=== PATIENT | male | born 1940 | race Caucasian/White ===

== ENCOUNTER → 2016-08-02 | Outpatient (CLI) | payer MEDICARE | LOC: MW.CHFP 08:00 | DX: L82.1 Other seborrheic keratosis (principal) | CPT/HCPCS: G0463 ==

== ENCOUNTER 2017-04-23 07:47 | Day surgery (SDC) | payer MEDICARE ==
[~2017-04-23 07:47] MED LIST: Bupivacaine 25%/EPINEPHrine/PF 30 ML ONE; Lactated Ringers 1,000 ML IV SCH; Lidocaine 2% 5 ML SDV ONE; Midazolam 1 MG/ML 2 ML SDV ONE; Ondansetron 4 MG/2 ML SDV ONE; Propofol 200 MG/20 ML SDV ONE; Sodium Chloride 0.9% 10 ML Syringe FLUSH PRN; Sodium Chloride 0.9% 2.5 ML Syringe FLUSH PRN; ceFAZolin 2 GM in Premix Bag 1 BAG IV ONE; fentaNYL 100 MCG/2 ML SDV ONE
[2017-04-23] MEDS ORDERED: Phenylephrine/Normal Saline 100 MCG/ML 10 ML Syringe ONE (08:03)
[2017-04-23] MEDS ORDERED: Sodium Chloride 0.9% 0 ML ONE (08:03)
[2017-04-23] MEDS ORDERED: ceFAZolin 1 GM Vial ONE ×2 (08:03→09:37)
[2017-04-23] MEDS ORDERED: ePHEDrine 50 MG/ML SDV ONE ×2 (08:05→09:43)
--- NOTE | 2017-04-23 08:45 | PCM.PREANE ---
Preanesthetic Assessment - Anesthesia/Transfusion/Family Hx Anesthesia History: Prior Anesthesia Without Reaction Family History of Anesthesia Reaction: No Transfusion History: No Prior Transfusion(s) - Review of Systems General: No Symptoms Pulmonary: No Symptoms Cardiovascular: No Symptoms Gastrointestinal: No Symptoms Neurological: No Symptoms Other: Reports: None - Physical Assessment NPO Status Date: 04/22/17 Height: 1.78 m Weight: 69.853 kg ASA Class: 1 Mental Status: Alert & Oriented x3 Airway Class: Mallampati = 1 Dentition: Reports: Partial ROM/Head Extension: Full Lungs: Clear to Auscultation, Normal Respiratory Effort Cardiovascular: Regular Rate, Regular Rhythm - Allergies Allergies/Adverse Reactions: Allergies Allergy/AdvReac Type Severity Reaction Status Date / Time bacitracin zinc Allergy Blisters Verified 12/02/14 17:46 [From Neosporin + Pain Relief] lactose Allergy Abdominal Verified 12/02/14 17:46 Cramps latex Allergy Rash Verified 12/02/14 17:46 neomycin sulfate Allergy Blisters Verified 12/02/14 17:46 [From Neosporin + Pain Relief] polymyxin B sulfate Allergy Blisters Verified 12/02/14 17:46 [From Neosporin + Pain Relief] pramoxine Allergy Blisters Verified 12/02/14 17:46 [From Neosporin + Pain Relief] pramoxine HCl Allergy Blisters Verified 12/02/14 17:46 [From Neosporin + Pain Relief] - Acknowledgements Anesthesia Type Planned: General Anesthesia Pt an Appropriate Candidate for the Planned Anesthesia: Yes Alternatives and Risks of Anesthesia Discussed w Pt/Guardian: Yes Pt/Guardian Understands and Agrees with Anesthesia Plan: Yes PreAnesthesia Questionnaire HEENT History: Reports: Other (See Below) Other HEENT History: wears glasses, top and bottom partial Respiratory History: Reports: Asthma Other Respiratory History: asthma as a child Gastrointestinal History: Reports: Other (See Below) Other Gastrointestinal History: Colon Cancer, diagnosed 10/14/14 Genitourinary History: Reports: None Oncologic (Cancer) History: Reports: Colon - Past Surgical History Head Surgeries/Procedures: Reports: None HEENT Surgical History: Reports: Tonsillectomy GI Surgical History: Reports: Colon, Colonoscopy, Hernia, Abdominal Other GI Surgeries/Procedures: hx partial colectomy with colostomy for colon cancer, reversal of colostomy, hx of left inguinal hernia repair, abd hernia repair - SUBSTANCE USE Smoking Status *Q: Former Smoker Days Per Week of Alcohol Use: 0 Recreational Drug Use History: No - HOME MEDS Home Medications: Home Meds . [No Known Home Meds] 04/17/17 [History] - CURRENT (IN HOUSE) MEDS Current Meds: Current Medications Lactated Ringer's (Ringers, Lactated) 1,000 mls @ 125 mls/hr IV ASDIRECTED [facility] Last Admin: 04/23/17 08:27 Dose: 125 mls/hr Sodium Chloride (Saline Flush) 10 ml FLUSH ASDIRECTED PRN PRN Reason: Keep Vein Open Sodium Chloride (Saline Flush) 2.5 ml FLUSH ASDIRECTED PRN PRN Reason: Keep Vein Open Discontinued Medications Cefazolin Sodium (Ancef) Confirm Administered Dose 1 gm .ROUTE .STK-MED ONE Stop: 04/23/17 08:04 Ephedrine Sulfate (Ephedrine Sulfate) Confirm Administered Dose 50 mg .ROUTE .STK-MED ONE Stop: 04/23/17 08:06 Fentanyl (Sublimaze) Confirm Administered Dose 200 mcg .ROUTE .STK-MED ONE Stop: 04/23/17 07:29 Cefazolin Sodium/Dextrose 2 gm (/ Premix) 50 mls @ 100 mls/hr IV ONETIME ONE Stop: 04/22/17 17:03 Bupivacaine HCl/Epinephrine Bitart (Sensorc Mpf 0.25%-Epi [id number]) Confirm Administered Dose 30 mls @ as directed .ROUTE .STK-MED ONE Stop: 04/23/17 07:36 Sodium Chloride (Normal Saline) Confirm Administered Dose 20 mls @ as directed .ROUTE .STK-MED ONE Stop: 04/23/17 08:04 Lidocaine (Xylocaine-Mpf 2%) Confirm Administered Dose 5 ml .ROUTE .STK-MED ONE Stop: 04/23/17 07:29 Midazolam HCl (Versed 1 Mg/Ml) Confirm Administered Dose 2 mg .ROUTE .STK-MED ONE Stop: 04/23/17 07:29 Ondansetron HCl (Zofran) Confirm Administered Dose 4 mg .ROUTE .STK-MED ONE Stop: 04/23/17 07:29 Phenylephrine HCl (Phenylephrine In Ns 100 Mcg/Ml) Confirm Administered Dose 1 mg .ROUTE .STK-MED ONE Stop: 04/23/17 08:04 Propofol (Diprivan 20 Ml) Confirm Administered Dose 200 mg .ROUTE .STK-MED ONE Stop: 04/23/17 07:29
[2017-04-23] MEDS ORDERED: Bupivacaine 25%/EPINEPHrine/PF 30 ML ONE (09:10)
[2017-04-23] MEDS ORDERED: Sodium Chloride 0.9% 20 ML ONE (09:37)
--- NOTE | 2017-04-23 11:23 | PCM.OPNOTE ---
- General Post-Op/Procedure Note Date of Surgery/Procedure: 04/23/17 Operative Procedure(s): Right indirect inguinal hernia repair Findings: Right direct inguinal hernia Pre Op Diagnosis: inguinal hernia Post-Op Diagnosis: Right indirect inguinal hernia Anesthesia Technique: General LMA EBL in mLs: 5 Condition: Good
[2017-04-23] MEDS ORDERED: Acetaminophen 1,000 MG in Premix Bag 1 BAG IV ONE (11:39)
--- NOTE | 2017-04-23 11:52 | PCM.POSTAN ---
POST ANESTHESIA ASSESSMENT - MENTAL STATUS Mental Status: Alert, Oriented - RESPIRATORY Respiratory Status: Respiratory Rate WNL, Airway Patent, O2 Saturation Stable - CARDIOVASCULAR CV Status: Pulse Rate WNL, Blood Pressure Stable - GASTROINTESTINAL GI Status: No Symptoms - POST OP HYDRATION Hydration Status: Adequate & Stable
--- NOTE | 2017-04-23 13:21 | PCM48HPAN ---
Post Anesthesia Note - EVALUATION WITHIN 48HRS OF ANESTHETIC Vital Signs in Normal Range: Yes Patient Participated in Evaluation: Yes Respiratory Function Stable: Yes Airway Patent: Yes Cardiovascular Function Stable: Yes Hydration Status Stable: Yes Pain Control Satisfactory: Yes Nausea and Vomiting Control Satisfactory: Yes Mental Status Recovered: Yes
[2017-04-23] MEDS ORDERED: Acetaminophen/oxyCODONE 325-5 MG Tab PO PRN (13:35)
[2017-04-23 15:27] VITALS: BP 146/80
--- NOTE | 2017-04-23 17:34 | OR ---
SURGEON: KRISTIE HARMAN MD DATE OF PROCEDURE: 04/23/2017 PREOPERATIVE DIAGNOSIS: Right inguinal hernia. POSTOPERATIVE DIAGNOSIS: Right direct inguinal hernia. PROCEDURE PERFORMED: Right inguinal hernia repair with mesh. ANESTHESIA: General LMA. FLUIDS: See Anesthesia record. ESTIMATED BLOOD LOSS: 5 mL. FINDINGS: Large indirect inguinal hernia sac on the right side. No evidence of a direct inguinal hernia. COMPLICATIONS: None. INDICATIONS: The patient is a 76-year-old male, who presents with an enlarging right inguinal hernia. This has been present for the last several months and is getting larger in size. It has recently started to become painful and more difficult to reduce. Decision was made to perform a repair of this hernia. The patient and I discussed the procedure as well as expected perioperative course. We discussed the risks including bleeding, infection, and damage to surrounding structures. The patient verbalized understanding and wishes to proceed. PROCEDURE IN DETAIL: The patient was brought into the OR and placed on the OR table in a supine position. A time-out was completed verifying the patient's name, age, date of , allergies, and procedure to be performed. General LMA anesthesia was induced. The abdomen and groin were prepped and draped in the usual standard fashion. I anesthetized the area of the right inguinal ligament with 0.5% Marcaine plain. An incision was made about 2 fingerbreadths above the inguinal ligament in an oblique fashion. Cautery was used to dissect down to the level of the external oblique fascia. The external oblique fascia was opened with a #15 blade along its fibers. Metzenbaum scissors were used to open up the fibers up to the external ring. Flaps were created superiorly and inferiorly underneath the external oblique fascia. The cord was then dissected free from the floor of the inguinal canal around the pubic tubercle and encircled with umbilical tape. The patient had an indirect inguinal hernia sac on the anteromedial portion of the cord structures. This was dissected free while protecting the cord structures below. It was dissected up to the level of the internal ring. At the level of the internal ring, a cord lipoma was noted. This was dissected free off the hernia sac and ligated. The base of the inguinal hernia sac and cord lipoma were both tied with 3-0 Vicryl to ensure good hemostasis. The indirect hernia sac was transected above the suture and hemostasis ensured. The cord lipoma and inguinal hernia sac were sent to Pathology. A large patch was then brought into the field and sutured medially to the pubic tubercle with 0 Ethibond suture. The mesh was secured inferiorly to the inguinal shelf with interrupted 0 Ethibond sutures. It was secured superiorly to the transversalis fascia with interrupted 0 Ethibond sutures. The tails were then brought together to recreate the internal ring and sutured together. The defect in the mesh was wide enough to allow passage of just the tip of my finger. This was enough room so that the cord structures did not appear strangulated. Once the mesh was secured in place, the wound was irrigated with normal saline. 3-0 Vicryl was then used to close the external oblique down to the level of the external ring. The skin was then closed with a running 3-0 Vicryl suture in the subcutaneous fat and a running 4-0 Monocryl suture to close the skin. Steri- Strips and sterile dressings were applied. The patient tolerated procedure well and was taken to the PACU in stable condition. LÓPEZ MORTON /[id number]
== END 2017-04-23 14:55 | disposition home or self-care (01) ==
LOC: MW.SDS 07:47
PROVIDERS: ATTEND Surgery
DX: K40.90 Unilateral inguinal hernia, without obstruction or gangrene, not specified as recurrent (principal); J45.909 Unspecified asthma, uncomplicated; Z88.6 Allergy status to analgesic agent; Z88.1 Allergy status to other antibiotic agents; Z91.040 Latex allergy status; Z91.011 Allergy to milk products; Z85.038 Personal history of other malignant neoplasm of large intestine; Z87.891 Personal history of nicotine dependence; Z80.42 Family history of malignant neoplasm of prostate; Z90.49 Acquired absence of other specified parts of digestive tract; Z98.890 Other specified postprocedural states
CPT/HCPCS: 49505; A9270; J0690; J2250; J2405; J3010; J7120; 00830; 88302; C1781; J2704

== ENCOUNTER 2018-12-17 06:52 | Day surgery (SDC) | payer OTHER, MEDICARE ==
[~2018-12-17 06:52] MED LIST changes: -Bupivacaine 25%/EPINEPHrine/PF 30 ML ONE; -Lidocaine 2% 5 ML SDV ONE; -Midazolam 1 MG/ML 2 ML SDV ONE; -Ondansetron 4 MG/2 ML SDV ONE; -Propofol 200 MG/20 ML SDV ONE; +Sodium Chloride 0.9% 10 ML SDV IV PRN; -ceFAZolin 2 GM in Premix Bag 1 BAG IV ONE; -fentaNYL 100 MCG/2 ML SDV ONE
[2018-12-17] MEDS ORDERED: Propofol 200 MG/20 ML SDV ONE (07:13)
[2018-12-17] MEDS ORDERED: fentaNYL 100 MCG/2 ML SDV ONE (07:13)
[2018-12-17] MEDS ORDERED: Midazolam 1 MG/ML 2 ML SDV ONE (07:14)
--- NOTE | 2018-12-17 08:41 | PCM.PREANE ---
Preanesthetic Assessment - Anesthesia/Transfusion/Family Hx Anesthesia History: Prior Anesthesia Without Reaction Family History of Anesthesia Reaction: No Transfusion History: No Prior Transfusion(s) Intubation History: Unknown - Review of Systems General: No Symptoms Pulmonary: No Symptoms Cardiovascular: No Symptoms Gastrointestinal: Hematochezia, Other (h/o colon cancer 4 years ago) Neurological: No Symptoms Other: Reports: None - Physical Assessment O2 Sat by Pulse Oximetry: 97 Respiratory Rate: 14 Vital Signs: Last Vital Signs Temp 36.6 C 12/17/18 07:29 Pulse 72 12/17/18 07:29 Resp 14 12/17/18 07:29 BP 123/62 12/17/18 07:29 Pulse Ox 97 12/17/18 07:29 Height: 5 ft 10 in Weight: 67.585 kg ASA Class: 2 Mental Status: Alert & Oriented x3 Airway Class: Mallampati = 2 Dentition: Reports: Normal Dentition, Partial (upper and lower) Thyro-Mental Finger Breadths: 3 Mouth Opening Finger Breadths: 3 ROM/Head Extension: Full Lungs: Clear to Auscultation, Normal Respiratory Effort Cardiovascular: Regular Rate, Regular Rhythm - Allergies Allergies/Adverse Reactions: Allergies Allergy/AdvReac Type Severity Reaction Status Date / Time bacitracin zinc Allergy Blisters Verified 12/14/18 08:00 [From Neosporin + Pain Relief] lactose Allergy Abdominal Verified 12/14/18 08:00 Cramps latex Allergy Rash Verified 12/14/18 08:00 neomycin sulfate Allergy Blisters Verified 12/14/18 08:00 [From Neosporin + Pain Relief] polymyxin B sulfate Allergy Blisters Verified 12/14/18 08:00 [From Neosporin + Pain Relief] pramoxine Allergy Blisters Verified 12/14/18 08:00 [From Neosporin + Pain Relief] pramoxine HCl Allergy Blisters Verified 12/14/18 08:00 [From Neosporin + Pain Relief] - Blood Blood Available: No - Anesthesia Plan Pre-Op Medication Ordered: None - Acknowledgements Anesthesia Type Planned: MAC Pt an Appropriate Candidate for the Planned Anesthesia: Yes Alternatives and Risks of Anesthesia Discussed w Pt/Guardian: Yes Pt/Guardian Understands and Agrees with Anesthesia Plan: Yes PreAnesthesia Questionnaire HEENT History: Reports: Other (See Below) Other HEENT History: wears glasses, top and bottom partial Cardiovascular History: Reports: None Respiratory History: Reports: None Gastrointestinal History: Reports: Other (See Below) Other Gastrointestinal History: Colon Cancer, diagnosed 10/14/14 Genitourinary History: Reports: None Musculoskeletal History: Reports: None Neurological History: Reports: None Psychiatric History: Reports: None Endocrine/Metabolic History: Reports: None Hematologic History: Reports: None Immunologic History: Reports: None Oncologic (Cancer) History: Reports: Colon Dermatologic History: Reports: None - Past Surgical History Head Surgeries/Procedures: Reports: None HEENT Surgical History: Reports: Tonsillectomy Cardiovascular Surgical History: Reports: None Respiratory Surgical History: Reports: None GI Surgical History: Reports: Appendectomy, Colon (laparoscopic partial colectomy with loop ileostomy and later ileostomy take down), Colonoscopy (x2), Hernia, Inguinal Other GI Surgeries/Procedures: hx partial colectomy with colostomy for colon cancer, reversal of colostomy, hx of left & rt inguinal hernia repair, Male Surgical History: Reports: None Endocrine Surgical History: Reports: None Neurological Surgical History: Reports: None Musculoskeletal Surgical History: Reports: None Oncologic Surgical History: Reports: None Dermatological Surgical History: Reports: None - SUBSTANCE USE Smoking Status *Q: Former Smoker Tobacco Use Within Last Twelve Months: No Recreational Drug Use History: No - HOME MEDS Home Medications: Home Meds . [No Known Home Meds] 04/17/17 [History] - CURRENT (IN HOUSE) MEDS Current Meds: Current Medications Lactated Ringer's (Ringers, Lactated) 1,000 mls @ 125 mls/hr IV ASDIRECTED [facility] Last Admin: 12/17/18 07:57 Dose: 125 mls/hr Sodium Chloride (Saline Flush) 10 ml FLUSH ASDIRECTED PRN PRN Reason: Keep Vein Open Sodium Chloride (Saline Flush) 2.5 ml FLUSH ASDIRECTED PRN PRN Reason: Keep Vein Open Sodium Chloride (Saline Flush) 10 ml FLUSH ASDIRECTED PRN PRN Reason: Keep Vein Open Sodium Chloride (Saline Flush) 2.5 ml FLUSH ASDIRECTED PRN PRN Reason: Keep Vein Open Sodium Chloride (Normal Saline) 10 ml IV ASDIRECTED PRN PRN Reason: IV Use Discontinued Medications Fentanyl (Sublimaze) Confirm Administered Dose 100 mcg .ROUTE .K-MED ONE Stop: 12/17/18 07:14 Midazolam HCl (Versed 1 Mg/Ml) Confirm Administered Dose 2 mg .ROUTE .STK-MED ONE Stop: 12/17/18 07:15 Propofol (Diprivan 20 Ml) Confirm Administered Dose 200 mg .ROUTE .STK-MED ONE Stop: 12/17/18 07:14
--- NOTE | 2018-12-17 09:56 | PCM.OPNOTE ---
- General Post-Op/Procedure Note Date of Surgery/Procedure: 12/17/18 Operative Procedure(s): Diagnostic colonoscopy Findings: 2 sigmoid colon polyps @ 20 cm, Grade 2 hemorrhoids, diverticulosis Pre Op Diagnosis: History of rectal cancer, BRBPR Post-Op Diagnosis: Sigmoid colon polyps x 2, diverticulosis, grade 2 hemorrhoids Anesthesia Technique: MAC Primary Surgeon: Julia Gottlieb Fluid Replacement, Intraop: 800 Condition: Good
--- NOTE | 2018-12-17 10:32 | PCM.POSTAN ---
POST ANESTHESIA ASSESSMENT - MENTAL STATUS Mental Status: Alert, Oriented - RESPIRATORY Respiratory Status: Respiratory Rate WNL, Airway Patent - CARDIOVASCULAR CV Status: Pulse Rate WNL, Blood Pressure Stable - GASTROINTESTINAL GI Status: No Symptoms - PAIN Pain Score: 0 - POST OP HYDRATION Hydration Status: Adequate & Stable - OBSERVATIONS Free Text/Narrative:: no anesthesia problems
[2018-12-17 10:38] VITALS: BP 141/65
--- NOTE | 2018-12-17 13:32 | OR ---
SURGEON: JULIA GOTTLIEB MD DATE OF PROCEDURE: 12/17/2018 PREOPERATIVE DIAGNOSES: History of rectal cancer, change in bowel habits. POSTOPERATIVE DIAGNOSES: 1. Diverticulosis. 2. Grade 2 hemorrhoids. 3. Sigmoid colon polyps x2. PROCEDURE PERFORMED: Diagnostic colonoscopy with biopsy. PRIMARY SURGEON: Julia Gottlieb MD. ANESTHESIA: MAC. INSTRUMENT USED: Olympus colonoscope. EXTENT OF EXAM: To the cecum. PREPARATION: Good. LIMITATIONS: None. INDICATIONS FOR EXAMINATION: The patient is a 78-year-old male with a history of rectal cancer. He has undergone colon resection and ostomy takedown. He has recently had a change in his bowel habits with some bright red bleeding per rectum. The decision was made to proceed with a diagnostic colonoscopy. I explained the procedure, expected perioperative course, and risks including bleeding, infection, or damage to surrounding structures. The patient verbalized understanding and wishes to proceed. PROCEDURE IN DETAIL: The patient was brought into the endoscopy suite and placed in the left lateral decubitus position. A time-out was completed verifying the patient's name, age, date of , allergies, and procedure to be performed. Monitored anesthesia care was induced and continuous oxygen was provided via nasal cannula throughout the procedure. After adequate sedation was achieved, a digital rectal exam was performed. This showed grade 2 hemorrhoids. A well-lubricated colonoscope was inserted in the rectum and advanced under direct visualization to the level of the cecum. The cecum was identified by both visual and anatomic landmarks. A photograph was taken of the cecal cap. However, I was unable to retroflex the scope within the cecum due to looping of the scope more proximally. The scope was fully withdrawn while examining the color, texture, anatomy, and integrity of the mucosa from the cecum to the anal canal. The patient was found to have diverticulosis throughout the colon. At 20 cm close to the anastomotic line, the patient had 2 sessile sigmoid colon polyps. These were removed in piecemeal fashion using cold biopsy forceps and labeled as sigmoid colon polyp #1 and sigmoid colon polyp #2. The scope was then brought into the rectum and retroflexed to allow visualization of the anal canal opening. This appeared normal and a photograph was taken. There was no evidence of any hemorrhoidal irritation or bleeding. The scope was then straightened out and fully withdrawn. The cecum to anus time was 16 minutes. The patient tolerated the procedure well and was taken to PACU in stable condition. ENDOSCOPIC DIAGNOSES: 1. Diverticulosis. 2. Grade 2 hemorrhoids. 3. Sigmoid colon polyps x2. RECOMMENDATIONS: Follow up in clinic in 2 weeks. LÓPEZ MORTON /[id number]
== END 2018-12-17 11:02 | disposition home or self-care (01) ==
LOC: MW.SDS 06:52
PROVIDERS: ATTEND Surgery
DX: D12.5 Benign neoplasm of sigmoid colon (principal); K57.31 Diverticulosis of large intestine without perforation or abscess with bleeding; K64.1 Second degree hemorrhoids; Z87.891 Personal history of nicotine dependence; Z88.1 Allergy status to other antibiotic agents; Z91.040 Latex allergy status; Z91.011 Allergy to milk products; Z79.2 Long term (current) use of antibiotics; Z85.038 Personal history of other malignant neoplasm of large intestine; Z85.048 Personal history of other malignant neoplasm of rectum, rectosigmoid junction, and anus
CPT/HCPCS: 45380; J2250; J2704; J3010; J7120; 88305

== ENCOUNTER 2022-11-14 14:18 | Emergency (ER) | payer MEDICARE ==
[2022-11-14] MEDS ORDERED: Sodium Chloride 0.9% 10 ML Syringe FLUSH PRN (14:30)
[2022-11-14] MEDS ORDERED: Sodium Chloride 0.9% 2.5 ML Syringe FLUSH PRN (14:30)
[2022-11-14 14:44] LABS: BASOPHILS PERCENT AUTO 0.3 % (0.0-1.5); EOSINOPHILS ABSOLUTE AUTO 0.1 K/uL (0.0-0.7); EOSINOPHILS PERCENT AUTO 1.3 % (0.0-7.0); HEMATOCRIT 38.1 % (38.0-50.0); HEMOGLOBIN 13.1 g/dL (13.0-17.0); LYMPHOCYTES ABSOLUTE AUTO 1.1 K/uL (0.6-2.4); MEAN CORPUSCULAR HEMOGLOBIN 31.4 pg (27.0-32.0); MEAN CORPUSCULAR HGB CONC 34.4 g/dL (31.0-37.0); MEAN CORPUSCULAR VOLUME 91.4 fL (80.0-98.0); MONOCYTES ABSOLUTE AUTO 1.1 K/uL (0.0-0.8); MONOCYTES PERCENT AUTO 10.6 % (0.0-15.0); NEUTROPHILS ABSOLUTE AUTO 7.6 K/uL (1.4-5.7); NEUTROPHILS PERCENT AUTO 76.8 % (48.0-80.0); NRBC ABSOLUTE 0 K/uL; PLATELET COUNT,PLT 364 K/uL (150-400); RED BLOOD CELL COUNT 4.17 M/uL (4.50-5.90)
[2022-11-14 15:22] LABS: A/G RATIO 0.9 (0.9-1.6); ALANINE AMINOTRANSFERASE,ALT 26 IU/L (14-63); ALBUMIN 3.3 g/dL (3.4-5.0); ALKALINE PHOSPHATASE 58 U/L (46-116); ASPARTATE AMNIOTRANSFERASE,AST 18 IU/L (15-37); BILIRUBIN TOTAL 0.5 mg/dL (0.2-1.0); BLOOD UREA NITROGEN,BUN 13 mg/dL (7.0-18.0); CALCIUM 8.9 mg/dL (8.5-10.1); CARBON DIOXIDE,CO2 27.6 mmol/L (21.0-32.0); CHLORIDE,CL 95 mmol/L (98-107); CREATININE 0.9 mg/dL (0.8-1.3); GLUCOSE RANDOM 112 mg/dL (74-106); POTASSIUM,K 4.1 mmol/L (3.5-5.1); PROTEIN TOTAL,TP 6.9 g/dL (6.4-8.2); SODIUM,NA 131 mmol/L (136-148)
[2022-11-14 15:24] LABS: ESTIMATED GFR 86 mL/min (>60)
[2022-11-14] MEDS ORDERED: Adenosine 6 MG/2 ML SDV ONE (15:49)
[2022-11-14] MEDS: Adenosine 6 MG/2 ML SDV IVPUSH ONE ×2 (16:10→16:24)
[2022-11-14] MEDS ORDERED: Apixaban 5 MG Tab PO ONE (16:25)
[2022-11-14] MEDS ORDERED: Metoprolol Succinate 25 MG Tab.ER PO ONE (16:25)
[2022-11-14 17:24] VITALS: BP 144/112
[2022-11-14 17:25] VITALS: PULSE 147
== END 2022-11-14 17:25 | disposition home or self-care (01) ==
LOC: MW.ED 14:18
DX: I48.92 Unspecified atrial flutter (principal); Z88.1 Allergy status to other antibiotic agents; Z91.011 Allergy to milk products; Z91.040 Latex allergy status; Z79.01 Long term (current) use of anticoagulants
CPT/HCPCS: 36415; 71045; 80053; 83735; 84443; 85025; 93005; 99285; A9270; J3490; 93010; 99291; J0153

== ENCOUNTER 2022-11-18 08:11 | Emergency (ER) | payer MEDICARE ==
[2022-11-18] MEDS ORDERED: Lactated Ringers 1,000 ML IV ONE (08:14)
[2022-11-18 09:44] LABS: BASOPHILS PERCENT AUTO 0.6 % (0.0-1.5); EOSINOPHILS ABSOLUTE AUTO 0.2 K/uL (0.0-0.7); HEMATOCRIT 36.3 % (38.0-50.0); HEMOGLOBIN 12.4 g/dL (13.0-17.0); LYMPHOCYTES ABSOLUTE AUTO 0.7 K/uL (0.6-2.4); LYMPHOCYTES PERCENT AUTO 10.8 % (16.0-40.0); MEAN CORPUSCULAR HEMOGLOBIN 31.2 pg (27.0-32.0); MEAN CORPUSCULAR HGB CONC 34.2 g/dL (31.0-37.0); MEAN CORPUSCULAR VOLUME 91.4 fL (80.0-98.0); MONOCYTES ABSOLUTE AUTO 0.7 K/uL (0.0-0.8); MONOCYTES PERCENT AUTO 11.3 % (0.0-15.0); NEUTROPHILS ABSOLUTE AUTO 4.9 K/uL (1.4-5.7); NEUTROPHILS PERCENT AUTO 74.3 % (48.0-80.0); NRBC ABSOLUTE 0 K/uL; PLATELET COUNT,PLT 357 K/uL (150-400); RED BLOOD CELL COUNT 3.97 M/uL (4.50-5.90); WHITE BLOOD CELL COUNT,WBC 6.57 K/uL (4.0-11.0)
[2022-11-18 10:34] LABS: D-DIMER QUANTITATIVE 0.46 mg/L FEU (0.00-0.50); INR 1.2 (0.86-1.11); PTT,PARTIAL THROMBOPLSTIN TIME 36.4 SEC (23.9-30.7)
[2022-11-18 10:47] LABS: A/G RATIO 0.8 (0.9-1.6); ALANINE AMINOTRANSFERASE,ALT 44 IU/L (14-63); ALBUMIN 3.2 g/dL (3.4-5.0); ALKALINE PHOSPHATASE 62 U/L (46-116); ASPARTATE AMNIOTRANSFERASE,AST 24 IU/L (15-37); BILIRUBIN TOTAL 0.4 mg/dL (0.2-1.0); BLOOD UREA NITROGEN,BUN 13 mg/dL (7.0-18.0); CALCIUM 8.7 mg/dL (8.5-10.1); CARBON DIOXIDE,CO2 27.3 mmol/L (21.0-32.0); CHLORIDE,CL 99 mmol/L (98-107); CREATININE 0.8 mg/dL (0.8-1.3); GLUCOSE RANDOM 95 mg/dL (74-106); MAGNESIUM 2.2 mg/dL (1.8-2.4); POTASSIUM,K 4.1 mmol/L (3.5-5.1); SODIUM,NA 135 mmol/L (136-148)
[2022-11-18 10:48] LABS: ESTIMATED GFR 89 mL/min (>60)
[2022-11-18] MEDS ORDERED: Iopamidol 755 MG/ML 500 ML Multipack Bottle IVPUSH ONE ×2 (11:25→11:26)
[2022-11-18 14:03] VITALS: BP 168/79; PULSE 57
== END 2022-11-18 14:23 | disposition home or self-care (01) ==
LOC: MW.ED 08:11
DX: R04.2 Hemoptysis (principal); Z91.011 Allergy to milk products; Z88.1 Allergy status to other antibiotic agents; Z91.040 Latex allergy status; Z88.8 Allergy status to other drugs, medicaments and biological substances; Z79.01 Long term (current) use of anticoagulants
CPT/HCPCS: 36415; 71045; 71260; 80053; 83735; 83880; 84484; 85025; 85379; 85610; 85730; 86850; 86900; 86901; 99285; J7120; Q9967; 93010; 99284

== ENCOUNTER 2023-05-27 11:37 | Emergency (ER) | payer MEDICARE ==
[2023-05-27 11:46] VITALS: BP 112/67; PULSE 84
== END 2023-05-27 13:42 | disposition home or self-care (01) ==
LOC: MW.ED 11:37
DX: R60.0 Localized edema (principal); L03.115 Cellulitis of right lower limb; L03.116 Cellulitis of left lower limb; Z90.49 Acquired absence of other specified parts of digestive tract; Z88.1 Allergy status to other antibiotic agents; Z91.040 Latex allergy status
CPT/HCPCS: 93971-26-RT; 93971-RT; 99283; 99284

== ENCOUNTER 2023-08-05 14:56 | Inpatient (IN) | payer MEDICARE ==
[2023-08-05 16:34] LABS: BASOPHILS ABSOLUTE AUTO 0.01 K/uL (0.00-0.20); BASOPHILS PERCENT AUTO 0.1 % (0.0-1.0); HEMOGLOBIN 11.9 g/dL (14.0-18.0); IMMATURE GRAN ABSOLUTE AUTO 0.05 K/uL (0.00-0.05); IMMATURE GRAN PERCENT AUTO 0.6 % (0.0-0.4); LYMPHOCYTES PERCENT AUTO 1.2 % (24.0-44.0); MEAN CORPUSCULAR HEMOGLOBIN 32.9 pg (28.0-32.0); MEAN CORPUSCULAR VOLUME 93.9 fL (83.0-99.0); MEAN PLATELET VOLUME 9.4 fL (9.4-12.4); MONOCYTES PERCENT AUTO 7.1 % (0.0-8.0); NEUTROPHILS ABSOLUTE AUTO 7.66 K/uL (1.80-7.70); PLATELET COUNT,PLT 265 K/uL (150-400); RED BLOOD CELL COUNT 3.62 M/uL (4.52-5.90); WHITE BLOOD CELL COUNT,WBC 8.42 K/uL (3.9-11.3)
[2023-08-05 17:07] LABS: A/G RATIO 0.6 (0.9-1.6); ALBUMIN 2.4 g/dL (3.4-5.0); BILIRUBIN TOTAL 0.5 mg/dL (0.2-1.0); CALCIUM 8.7 mg/dL (8.5-10.1); CARBON DIOXIDE,CO2 23.3 mmol/L (21.0-32.0); EST CRCL DRUG DOSING (CG) 52.04 mL/min; POTASSIUM,K 3.9 mmol/L (3.5-5.1); PROTEIN TOTAL,TP 6.4 g/dL (6.4-8.2)
[2023-08-05] MEDS: Furosemide 40 MG/4 ML VIAL IVPUSH ONE (18:09)
[2023-08-05] MEDS ORDERED: Acetaminophen 325 MG Tab PO PRN (19:22)
[2023-08-06 05:32] LABS: BASOPHILS ABSOLUTE AUTO 0.01 K/uL (0.00-0.20); BASOPHILS PERCENT AUTO 0.2 % (0.0-1.0); EOSINOPHILS ABSOLUTE AUTO 0.01 K/uL (0.00-0.45); EOSINOPHILS PERCENT AUTO 0.2 % (0.0-6.0); HEMATOCRIT 32.8 % (42.0-52.0); HEMOGLOBIN 11.6 g/dL (14.0-18.0); IMMATURE GRAN ABSOLUTE AUTO 0.05 K/uL (0.00-0.05); IMMATURE GRAN PERCENT AUTO 0.8 % (0.0-0.4); LYMPHOCYTES ABSOLUTE AUTO 0.12 K/uL (1.00-4.80); LYMPHOCYTES PERCENT AUTO 1.9 % (24.0-44.0); MEAN CORPUSCULAR HEMOGLOBIN 32.8 pg (28.0-32.0); MEAN CORPUSCULAR HGB CONC 35.4 g/dL (32.0-36.0); MEAN CORPUSCULAR VOLUME 92.7 fL (83.0-99.0); MEAN PLATELET VOLUME 9.1 fL (9.4-12.4); MONOCYTES ABSOLUTE AUTO 0.59 K/uL (0.00-0.80); MONOCYTES PERCENT AUTO 9.5 % (0.0-8.0); NEUTROPHILS PERCENT AUTO 87.4 % (41.0-71.0); PLATELET COUNT,PLT 255 K/uL (150-400); RED BLOOD CELL COUNT 3.54 M/uL (4.52-5.90); WHITE BLOOD CELL COUNT,WBC 6.18 K/uL (3.9-11.3)
[2023-08-06 06:06] LABS: A/G RATIO 0.6 (0.9-1.6); ALBUMIN 2.2 g/dL (3.4-5.0); BILIRUBIN TOTAL 0.4 mg/dL (0.2-1.0); CALCIUM 8.5 mg/dL (8.5-10.1); CARBON DIOXIDE,CO2 26.6 mmol/L (21.0-32.0); EST CRCL DRUG DOSING (CG) 47.43 mL/min; POTASSIUM,K 3.4 mmol/L (3.5-5.1); PROTEIN TOTAL,TP 5.9 g/dL (6.4-8.2)
[2023-08-06] MEDS: Levothyroxine 25 MCG Tab PO SCH (06:33)
[2023-08-06] MEDS ORDERED: Sodium Chloride 0.9% 2.5 ML Syringe FLUSH PRN (08:05)
[2023-08-06] MEDS ORDERED: Albuterol/Ipratropium 3.0-0.5 MG/3 ML Neb Soln NEB PRN (08:05)
[2023-08-06] MEDS ORDERED: Ondansetron 4 MG/2 ML SDV IVPUSH PRN (08:05)
[2023-08-06] MEDS ORDERED: Docusate Sodium 100 MG Cap PO PRN (08:05)
[2023-08-06] MEDS ORDERED: Sodium Chloride 0.9% 10 ML Syringe FLUSH PRN (08:05)
[2023-08-06] MEDS ORDERED: Apixaban 2.5 MG Tab PO SCH (09:00)
[2023-08-06] MEDS ORDERED: Metoprolol Succinate 25 MG Tab.ER PO SCH (09:00)
[2023-08-06] MEDS: Bumetanide 1 MG/4 ML MDV IVPUSH SCH (09:49)
[2023-08-06] MEDS: Sodium Chloride 1 GM Tab PO SCH (09:50)
[2023-08-06] MEDS: Potassium Chloride 20 MEQ Tab.ER PO SCH (09:51)
[2023-08-06] MEDS: Rosuvastatin 10 MG Tab PO SCH (09:51)
[2023-08-06] MEDS ORDERED: Bumetanide 1 MG/4 ML MDV IVPUSH SCH (14:00)
[2023-08-06 15:55] VITALS: BP 124/78; PULSE 89
== END 2023-08-06 15:30 | DRG 292 ==
LOC: MW.ED 14:56 → MW.MS 17:53
PROVIDERS: ADMIT Internal Medicine; ATTEND Internal Medicine
DX: J81.1 Chronic pulmonary edema (principal); R09.02 Hypoxemia; I50.23 Acute on chronic systolic (congestive) heart failure; I31.39 Other pericardial effusion (noninflammatory); I48.92 Unspecified atrial flutter; J90 Pleural effusion, not elsewhere classified; I31.4 Cardiac tamponade; I48.19 Other persistent atrial fibrillation; H91.90 Unspecified hearing loss, unspecified ear; I34.0 Nonrheumatic mitral (valve) insufficiency; Z79.01 Long term (current) use of anticoagulants; Z91.040 Latex allergy status; Z88.8 Allergy status to other drugs, medicaments and biological substances; Z88.1 Allergy status to other antibiotic agents; Z79.899 Other long term (current) drug therapy; Z85.038 Personal history of other malignant neoplasm of large intestine; Z90.89 Acquired absence of other organs; Z90.49 Acquired absence of other specified parts of digestive tract; Z98.890 Other specified postprocedural states; Z85.118 Personal history of other malignant neoplasm of bronchus and lung
CPT/HCPCS: 36415; 71045; 71045-26; 80053; 83735; 83880; 84484; 85025; 93005; 93010; 93306; 99285; A9270-GY; J1940; J3490

== ENCOUNTER 2023-09-13 06:51 | Inpatient (IN) | payer MEDICARE ==
[2023-09-13 07:29] LABS: BASOPHILS ABSOLUTE AUTO 0.01 K/uL (0.00-0.20); BASOPHILS PERCENT AUTO 0.1 % (0.0-1.0); EOSINOPHILS ABSOLUTE AUTO 0.01 K/uL (0.00-0.45); EOSINOPHILS PERCENT AUTO 0.1 % (0.0-6.0); HEMATOCRIT 38.8 % (42.0-52.0); HEMOGLOBIN 13.9 g/dL (14.0-18.0); IMMATURE GRAN ABSOLUTE AUTO 0.04 K/uL (0.00-0.05); IMMATURE GRAN PERCENT AUTO 0.5 % (0.0-0.4); LYMPHOCYTES ABSOLUTE AUTO 0.18 K/uL (1.00-4.80); LYMPHOCYTES PERCENT AUTO 2.1 % (24.0-44.0); MEAN CORPUSCULAR HEMOGLOBIN 33.2 pg (28.0-32.0); MEAN CORPUSCULAR HGB CONC 35.8 g/dL (32.0-36.0); MEAN CORPUSCULAR VOLUME 92.6 fL (83.0-99.0); MEAN PLATELET VOLUME 9.6 fL (9.4-12.4); MONOCYTES ABSOLUTE AUTO 0.68 K/uL (0.00-0.80); NEUTROPHILS ABSOLUTE AUTO 7.56 K/uL (1.80-7.70); NEUTROPHILS PERCENT AUTO 89.2 % (41.0-71.0); PLATELET COUNT,PLT 245 K/uL (150-400); RED BLOOD CELL COUNT 4.19 M/uL (4.52-5.90); WHITE BLOOD CELL COUNT,WBC 8.48 K/uL (3.9-11.3)
[2023-09-13 07:36] LABS: A/G RATIO 0.6 (0.9-1.6); ALBUMIN 2.6 g/dL (3.4-5.0); BILIRUBIN TOTAL 0.6 mg/dL (0.2-1.0); CALCIUM 8.9 mg/dL (8.5-10.1); EST CRCL DRUG DOSING (CG) 52.04 mL/min; POTASSIUM,K 3.8 mmol/L (3.5-5.1); PROTEIN TOTAL,TP 6.8 g/dL (6.4-8.2)
[2023-09-13 07:37] LABS: INR 1.23 (0.86-1.11)
[2023-09-13 07:38] LABS: LACTIC ACID 1.7 mmol/L (0.4-2.0)
[2023-09-13] MEDS: Azithromycin 500 MG in Sodium Chloride 0.9% 250 ML IV ONE (07:54)
[2023-09-13] MEDS: cefTRIAXone 1 GM in Sodium Chloride 0.9% 50 ML IV ONE (07:54)
[2023-09-13] MEDS: Albuterol/Ipratropium 3.0-0.5 MG/3 ML Neb Soln NEB ONE (07:54)
[2023-09-13] MEDS: Sodium Chloride 0.9% 2.5 ML Syringe FLUSH PRN (07:54)
[2023-09-13] MEDS: Sodium Chloride 0.9% 10 ML Syringe FLUSH PRN (07:55)
[2023-09-13 08:01] LABS: BASE EXCESS ARTERIAL 2.2 (-2.0-3.0); BICARBONATE,ARTERIAL 26 mEq/L (22-26); PCO2 ARTERIAL 37 mmHG (35-45); PO2 ARTERIAL 57 mmHG (80-105)
[2023-09-13] MEDS: cefTRIAXone 1 GM Vial IM ONE (08:04)
[2023-09-13 08:07] LABS: CORONAVIRUS COVID-19 NAA NEGATIVE (NEGATIVE); INFLUENZA A NAA NEGATIVE (NEGATIVE); INFLUENZA B NAA NEGATIVE (NEGATIVE); RESPIRATORY SYNCYTIAL VIR NAA NEGATIVE (NEGATIVE)
[2023-09-13] MEDS: Iopamidol 755 Mg/ML 100 ML Bottle IVPUSH ONE (09:41)
[2023-09-13] MEDS: Furosemide 40 MG/4 ML VIAL IVPUSH ONE (11:35)
[2023-09-13] MEDS ORDERED: Albuterol/Ipratropium 3.0-0.5 MG/3 ML Neb Soln NEB PRN (14:00)
[2023-09-13] MEDS: Bumetanide 1 MG/4 ML MDV IVPUSH ONE (17:38)
[2023-09-13] MEDS: Metoprolol Tartrate 25 MG Tab PO SCH (20:19)
[2023-09-13] MEDS: Apixaban 2.5 MG Tab PO SCH (20:24)
[2023-09-13] MEDS ORDERED: Furosemide 40 MG/4 ML VIAL IVPUSH SCH (21:00)
[2023-09-14] MEDS: Azithromycin 500 MG in Sodium Chloride 0.9% 250 ML IV SCH (06:39)
[2023-09-14] MEDS: Levothyroxine 75 MCG Tab PO SCH (06:39)
[2023-09-14 07:53] LABS: BASOPHILS ABSOLUTE AUTO 0.01 K/uL (0.00-0.20); BASOPHILS PERCENT AUTO 0.1 % (0.0-1.0); EOSINOPHILS ABSOLUTE AUTO 0.01 K/uL (0.00-0.45); EOSINOPHILS PERCENT AUTO 0.1 % (0.0-6.0); HEMATOCRIT 36.3 % (42.0-52.0); HEMOGLOBIN 12.7 g/dL (14.0-18.0); IMMATURE GRAN ABSOLUTE AUTO 0.03 K/uL (0.00-0.05); IMMATURE GRAN PERCENT AUTO 0.4 % (0.0-0.4); LYMPHOCYTES ABSOLUTE AUTO 0.08 K/uL (1.00-4.80); LYMPHOCYTES PERCENT AUTO 1.1 % (24.0-44.0); MEAN CORPUSCULAR HEMOGLOBIN 32.8 pg (28.0-32.0); MEAN CORPUSCULAR VOLUME 93.8 fL (83.0-99.0); MEAN PLATELET VOLUME 9.4 fL (9.4-12.4); MONOCYTES ABSOLUTE AUTO 0.58 K/uL (0.00-0.80); MONOCYTES PERCENT AUTO 8.1 % (0.0-8.0); NEUTROPHILS ABSOLUTE AUTO 6.46 K/uL (1.80-7.70); NEUTROPHILS PERCENT AUTO 90.2 % (41.0-71.0); PLATELET COUNT,PLT 206 K/uL (150-400); RED BLOOD CELL COUNT 3.87 M/uL (4.52-5.90); WHITE BLOOD CELL COUNT,WBC 7.17 K/uL (3.9-11.3)
[2023-09-14 08:17] LABS: CALCIUM 8.3 mg/dL (8.5-10.1); CARBON DIOXIDE,CO2 29.4 mmol/L (21.0-32.0); CREATININE 0.8 mg/dL (0.8-1.3); EST CRCL DRUG DOSING (CG) 70.78 mL/min; POTASSIUM,K 3.3 mmol/L (3.5-5.1)
[2023-09-14] MEDS: cefTRIAXone 1 GM in Sodium Chloride 0.9% 50 ML IV SCH (09:29)
[2023-09-14] MEDS: Potassium Chloride 10 MEQ in Premix Bag 1 BAG IV SCH (10:18)
[2023-09-14] MEDS: Potassium Chloride 20 MEQ Tab.ER PO ONE (11:58)
[2023-09-14] MEDS: Bumetanide 1 MG/4 ML MDV IVPUSH SCH (15:16)
[2023-09-14] MEDS ORDERED: Sodium Chloride 0.65% Nasal Spray 45 ML Bottle NAS PRN (18:48)
[2023-09-15 06:51] LABS: BASOPHILS ABSOLUTE AUTO 0.01 K/uL (0.00-0.20); BASOPHILS PERCENT AUTO 0.1 % (0.0-1.0); EOSINOPHILS ABSOLUTE AUTO 0.05 K/uL (0.00-0.45); EOSINOPHILS PERCENT AUTO 0.6 % (0.0-6.0); HEMATOCRIT 37.7 % (42.0-52.0); HEMOGLOBIN 13.1 g/dL (14.0-18.0); IMMATURE GRAN ABSOLUTE AUTO 0.03 K/uL (0.00-0.05); IMMATURE GRAN PERCENT AUTO 0.4 % (0.0-0.4); LYMPHOCYTES ABSOLUTE AUTO 0.18 K/uL (1.00-4.80); LYMPHOCYTES PERCENT AUTO 2.3 % (24.0-44.0); MEAN CORPUSCULAR HGB CONC 34.7 g/dL (32.0-36.0); MEAN PLATELET VOLUME 9.3 fL (9.4-12.4); MONOCYTES ABSOLUTE AUTO 0.71 K/uL (0.00-0.80); MONOCYTES PERCENT AUTO 8.9 % (0.0-8.0); NEUTROPHILS ABSOLUTE AUTO 6.98 K/uL (1.80-7.70); NEUTROPHILS PERCENT AUTO 87.7 % (41.0-71.0); PLATELET COUNT,PLT 247 K/uL (150-400); RED BLOOD CELL COUNT 3.97 M/uL (4.52-5.90); WHITE BLOOD CELL COUNT,WBC 7.96 K/uL (3.9-11.3)
[2023-09-15 07:12] LABS: A/G RATIO 0.6 (0.9-1.6); ALBUMIN 2.4 g/dL (3.4-5.0); BILIRUBIN TOTAL 0.3 mg/dL (0.2-1.0); CARBON DIOXIDE,CO2 30.1 mmol/L (21.0-32.0); CREATININE 0.7 mg/dL (0.8-1.3); EST CRCL DRUG DOSING (CG) 80.89 mL/min; POTASSIUM,K 3.9 mmol/L (3.5-5.1); PROTEIN TOTAL,TP 6.4 g/dL (6.4-8.2)
[2023-09-16] MEDS ORDERED: Naloxone 0.4 MG/ML SDV IVPUSH PRN (09:20)
[2023-09-16] MEDS ORDERED: LORazepam 2 MG/ML Syringe IVPUSH PRN (09:24)
[2023-09-16] MEDS: LORazepam 1 MG Tab PO PRN (23:45)
[2023-09-17] MEDS: Morphine 2 MG/ML SYRINGE IVPUSH PRN (04:48)
[2023-09-17 12:11] VITALS: BP 142/102
[2023-09-17] MEDS ORDERED: Hyoscyamine 0.125 MG Tab.SL SL PRN (12:41)
[2023-09-17] MEDS: LORazepam 2 MG/ML SDV IV PRN (15:49)
[2023-09-17 18:04] VITALS: PULSE 87
== END 2023-09-18 00:55 | disposition expired | DRG 291 ==
LOC: MW.ED 06:51 → MW.MS 12:49
PROVIDERS: ADMIT Internal Medicine; ATTEND Internal Medicine
PROC: 5A09457 Assistance with Respiratory Ventilation, 24-96 Consecutive Hours, Continuous Positive Airway Pressure (ICD-10-PCS; principal; 2023-09-13)
PROC: 5A09357 Assistance with Respiratory Ventilation, Less than 24 Consecutive Hours, Continuous Positive Airway Pressure (ICD-10-PCS; 2023-09-15)
DX: I50.23 Acute on chronic systolic (congestive) heart failure (principal); J96.01 Acute respiratory failure with hypoxia; C34.90 Malignant neoplasm of unspecified part of unspecified bronchus or lung; I31.39 Other pericardial effusion (noninflammatory); I31.4 Cardiac tamponade; Z51.5 Encounter for palliative care; I48.91 Unspecified atrial fibrillation; E86.0 Dehydration; H91.90 Unspecified hearing loss, unspecified ear; H54.7 Unspecified visual loss; I51.7 Cardiomegaly; Z88.1 Allergy status to other antibiotic agents; Z79.01 Long term (current) use of anticoagulants; Z90.49 Acquired absence of other specified parts of digestive tract; Z91.040 Latex allergy status; Z79.899 Other long term (current) drug therapy; Z98.890 Other specified postprocedural states; Z79.890 Hormone replacement therapy; R62.7 Adult failure to thrive
CPT/HCPCS: 0241U; 36415; 36600; 71045; 71045-26; 71275; 71275-26; 80048; 80053; 82803; 83605; 83880; 84145; 84484; 85025; 85610; 87040; 93005; 93010; 94660; 96365; 96367; 96375; 99223; 99233; 99239; 99285; 99285-25; A9270-GY; J0456; J0696; J1940; J2060; J2270; J3480; J3490; J7050; J7620-GY; Q9967